=== PATIENT | male | born 1990 | race African-American/Black ===

== ENCOUNTER 2023-11-23 21:47 | Emergency (ER) | payer SELFPAY | END 2023-11-23 22:30 | disposition home or self-care (01) | LOC: NAV ERS 21:47 | DX: T16.1XXA Foreign body in right ear, initial encounter (principal); X58.XXXA Exposure to other specified factors, initial encounter | CPT/HCPCS: 69200; 99282 ==

== ENCOUNTER 2024-06-22 05:16 | Emergency (ER) | payer SELFPAY ==
[2024-06-22] MEDS ORDERED: Ibuprofen 200 MG TAB ONE (05:51)
[2024-06-22] MEDS ORDERED: Acetaminophen 325 MG TAB ONE (05:51)
== END 2024-06-22 06:15 | disposition home or self-care (01) ==
LOC: NAV ERS 05:16
DX: H65.91 Unspecified nonsuppurative otitis media, right ear (principal); R05.9 Cough, unspecified
CPT/HCPCS: 87428; 99283